=== PATIENT | male | born 1980 | race Caucasian/White ===

== ENCOUNTER → 2017-01-11 | Outpatient (CLI) | payer OTHER | LOC: FIMAGING 12:04 | PROVIDERS: ATTEND Physician Assistant | DX: J32.4 Chronic pansinusitis (principal) ==

== ENCOUNTER → 2018-01-21 | Outpatient (CLI) | payer OTHER | LOC: BMCIMAGING 11:33 | PROVIDERS: ATTEND Orthopaedic Surgery Hand Surgery | DX: S63.289D Dislocation of proximal interphalangeal joint of unspecified finger, subsequent encounter (principal) ==